=== PATIENT | female | born 1995 | race Caucasian/White ===

== ENCOUNTER 2022-03-27 00:15 | Emergency (ER) | payer MEDICAID ==
[~2022-03-27] VITALS: Ht 157.5 cm; Wt 64.4 kg
[2022-03-27 00:41] VITALS: BP 137/113
--- NOTE | 2022-03-27 01:54 | NUR ---
Dr. Tucker examining patient.
[2022-03-27] MEDS ORDERED: ALBUTEROL 0.083% 2.5 MG/3 ML NEBU INH ONE (02:10)
[2022-03-27] MEDS ORDERED: DEXAMETHASONE 10 MG/ML VIAL PO ONE (02:10)
[2022-03-27] MEDS ORDERED: IPRATROPIUM 0.02% 0.5 MG/2.5 ML NEBU INH ONE (02:10)
[2022-03-27] MEDS ORDERED: ALBU0.0912 INH (02:12)
[2022-03-27 03:22] VITALS: BP 134/98
--- NOTE | 2022-03-27 03:23 | NUR ---
C/O Adult-Asthma x today. Patient reported, had difficulty breathing since this morning, ran out IH medications. AAOX4, AMBULATORY PMHx: Asthma
--- NOTE | 2022-03-27 03:27 | NUR ---
Patient discharged with v/s stable BY ERMD. Written and verbal after care instructions given and explained. Patient verbalized understanding. Ambulatory with steady gait. All questions addressed prior to discharge. Advised to follow up with PMD.
== END 2022-03-27 03:27 | disposition home or self-care (01) ==
LOC: MED 00:15
DX: J45.901 Unspecified asthma with (acute) exacerbation (principal); Z20.822 Contact with and (suspected) exposure to COVID-19; B34.9 Viral infection, unspecified
CPT/HCPCS: 87426; 87804; 94640; 99283; J1100; J7613

== ENCOUNTER 2022-10-01 12:00 | Emergency (ER) | payer MEDICAID, OTHER ==
[~2022-10-01] VITALS: Ht 160 cm; Wt 65.8 kg
[~2022-10-01 12:00] MED LIST: ALBU0.0912 INH
[2022-10-01 12:04] VITALS: BP 129/105
[2022-10-01] MEDS ORDERED: ALBUTEROL SULFATE/IPRATROPIU 3 ML SOL IH ONE (12:20)
[2022-10-01] MEDS ORDERED: CETI10CA6 PO (13:08)
[2022-10-01] MEDS ORDERED: ALBU0.0912 IH (13:08)
[2022-10-01] MEDS ORDERED: IBUP-1842 PO (13:08)
--- NOTE | 2022-10-01 13:58 | NUR ---
Patient discharged with v/s stable. Written and verbal after care instructions given and explained. Patient alert, oriented and verbalized understanding of instructions. Ambulatory with to home. All questions addressed prior to discharge. ID band removed. Patient advised to follow up with PMD. Rx of PROVENTIL,CETIRIZINE, MOTRIN given. Patient educated on indication of medication including possible reaction and side effects. Opportunity to ask questions provided and answered.
== END 2022-10-01 13:58 | disposition home or self-care (01) ==
LOC: MED 12:00
DX: J06.9 Acute upper respiratory infection, unspecified (principal); J98.01 Acute bronchospasm; Z79.899 Other long term (current) drug therapy
CPT/HCPCS: 94640; 99283

== ENCOUNTER 2022-12-05 22:26 | Emergency (ER) | payer OTHER ==
[~2022-12-05] VITALS: Ht 157.5 cm; Wt 61.2 kg
[~2022-12-05 22:26] MED LIST changes: +ALBU0.0912 IH; +CETI10CA6 PO; +IBUP-1842 PO
[2022-12-05 22:34] VITALS: BP 160/82; PULSE 91; RESP 17; TEMP 98.5; O2SAT 99
[2022-12-05 22:55] LABS: APPEARANCE,URINE SL CLOUDY (CLEAR); BILIRUBIN,URINE NEGATIVE (NEGATIVE); BLOOD, URINE NEGATIVE (NEGATIVE); COLOR,URINE YELLOW (YELLOW); LEUKOCYTE ESTERASE ,URINE NEGATIVE (NEGATIVE); NITRITE, URINE POSITIVE (NEGATIVE); PROTEIN,URINE NEGATIVE (NEGATIVE); UGLUCOSE NEGATIVE (NEGATIVE)
[2022-12-05 23:03] LABS: BACTERIA,URINE >30 (MANY) /HPF (None Seen); MUCUS,URINE 1+ /LPF (None Seen); RBC,URINE 0-5 /HPF (0-5); SQUAMOUS EPITHELIAL CELL,UR 0-3 (FEW) /LPF (0-3 (FEW))
[2022-12-06] MEDS ORDERED: METOCLOPRAMIDE 10 MG TAB PO ONE (00:20)
[2022-12-06] MEDS ORDERED: ACETAMINOPHEN 325 MG TAB PO ONE (00:20)
[2022-12-06] MEDS ORDERED: KETOROLAC 60 MG/2 ML VIAL IM ONE (00:20)
[2022-12-06] MEDS ORDERED: METO-486 PO (00:34)
[2022-12-06] MEDS ORDERED: IBUP-2213 PO (00:34)
[2022-12-06] MEDS ORDERED: ACET-10509 PO (00:34)
[2022-12-06 01:22] VITALS: BP 160/82; PULSE 91; RESP 17; TEMP 98.5; O2SAT 99
== END 2022-12-06 01:23 | disposition home or self-care (01) ==
LOC: MED 22:26
DX: M54.50 Low back pain, unspecified (principal); G43.909 Migraine, unspecified, not intractable, without status migrainosus; J45.909 Unspecified asthma, uncomplicated; Z79.899 Other long term (current) drug therapy
CPT/HCPCS: 81001; 81025; 87086; 93005; 96372; 99284; J1885; J8597